=== PATIENT | female | born 1990 | race Caucasian/White ===

== ENCOUNTER 2024-09-22 21:47 | Emergency (ER) | payer BC, SELFPAY ==
[2024-09-22 21:58] VITALS: BP 176/108; PULSE 108; TEMP 37.2; O2SAT 99; BMI 38.8
[2024-09-22 22:08] VITALS: PULSE 101
--- NOTE | 2024-09-22 22:08 | ECG_ITS ---
[facility] Test Date: 2024-09-22 Pat Name: AMADO BOWDEN Department: Room: - Gender: Female [employer]: : 1990 Requested By: Shine Gomez Order Number: [id number] Reading MD: ANABELLA GOODRICH M.D. Measurements Intervals [place] Rate: 101 P: 34 ID: 150 QRS: 35 QRSD: 88 T: 0 QT: 344 QTc: 402 Interpretive Statements 1120 Sinus tachycardia [address] depression [address] & [place] abnormality 9140 abnormal rhythm ECG No previous ECG available for comparison Electronically Signed On 09-23-2024 8:55:56 EDT by ANABELLA GOODRICH M.D.
--- NOTE | 2024-09-22 22:37 | ED.GENADUL1 ---
HPI HPI - General Adult General Chief complaint: Recheck/Abnormal Lab/Rx Stated complaint: HIGH BP Time Seen by Provider: 09/22/24 21:58 Source: patient Mode of arrival: walk-in Limitations: no limitations History of Present Illness HPI narrative: cc - high blood pressure Pt saw a primary care provider for the first time in many years and was diagnosed with high blood pressure. She was started on Losartan and took the first dose yesterday. She said that she got a prescription for additional doses and took one today as well. She received a blood pressure cuff in the mail today and when she took her BP tonight, it was markedly elevated. She became very upset and came to the ED for evaluation. On questioning, she told me that she has been experiencing intermittent symptoms of chest pains, palpitations, shortness of breath, occasional dizziness. She denied any headache or visual changes. No Gi or symptoms,. she had some cough and cold symptoms last week but denies any now. no fever or chills. She said that she also has untreated low thyroid . She is anxious and emotional on arrival. Related Data Home Medications ?Medication ?Instructions ?Recorded ?Confirmed losartan 50 mg tablet 50 mg PO DAILY 09/22/24 09/22/24 Allergies Allergy/AdvReac Type Severity Reaction Status Date / Time No Known Drug Allergies Allergy Verified 09/22/24 22:03 Opioid HPI Opioid Management Most Recent Opioid Data: No Data to Display [facility] Medical History (Updated 09/22/24 @ 22:45 by Shine Gomez) Hypothyroid ?E03.9 - Hypothyroidism, unspecified (ICD-10) Social History Little interest or pleasure in doing things: not at all Feeling down, depressed, or hopeless: not at all Exam Narrative Exam Narrative: Nurses notes and vital signs reviewed and patient is not hypoxic. afebrile General: emotional but in no apparent distress. Skin: Warm, dry, no pallor noted. No rash. Head: Normocephalic, atraumatic. Neck: Supple, non-tender. Eye: Pupils are equal, round and EOMI. No scleral icterus. Ears, Nose, Mouth, and Throat: Oral mucosa is moist Cardiovascular: Regular Rate and Rhythm without murmur, gallop or rub. Respiratory: No accessory muscle use or respiratory distress. Lungs are clear to auscultation, no wheezing, rales or rhonchi Musculoskeletal: normal ROM, no calf or popliteal tenderness, no lower extremity edema/swelling GI: Abdomen is soft, non-distended. Normal bowel sounds. No masses appreciated. No tenderness to palpation. No rebound, guarding, or rigidity noted. Neurological: A&O x4. No cranial nerve dysfunction observed. No truncal ataxia. Moves all extremities. Sensation intact. Psychiatric: Cooperative and interactive. emotional and anxious. Constitutional Vital Signs, click to edit/add: Last Vital Signs Temp 98.9 F 09/22/24 21:58 Pulse 90 09/23/24 00:35 Resp 16 09/23/24 00:35 BP 160/100 H 09/23/24 00:35 Pulse Ox 97 09/23/24 00:35 O2 Del Method Room Air 09/23/24 00:35 Course Vital Signs Vital signs: Vital Signs Temperature 98.9 F 09/22/24 21:58 Pulse Rate 108 H 09/22/24 21:58 Respiratory Rate 18 09/22/24 21:58 Blood Pressure 176/108 H 09/22/24 21:58 Pulse Oximetry 99 09/22/24 21:58 Temperature 98.9 F 09/22/24 21:58 Pulse Rate 90 09/23/24 00:35 Respiratory Rate 16 09/23/24 00:35 Blood Pressure 160/100 H 09/23/24 00:35 Pulse Oximetry 97 09/23/24 00:35 Oxygen Delivery Method Room Air 09/23/24 00:35 Medical Decision Making MDM Narrative Medical decision making narrative: The patient had blood drawn yesterday and she showed me her blood test results, using her phone. Unremarkable CBC and metabolic profile. Normal electrolytes and kidney function. Minimal increase in AST and ALT. D-dimer was found to be slightly elevated at 0.71. Her primary care physician had recommended the patient obtain a CT of the chest -therefore I sent her for this test while in the emergency department. EKG showed a sinus tachycardia without any ST elevation or deep ischemic changes although she does have T wave inversion in lead III. Free T3 and free T4 were normal. CT angio chest = without worrisome findings, according to the radiologist report, which is detailed below. The patient's blood pressure improved after receiving IV labetalol and IV Vasotec. She was reassured and informed of her negative workup and discharged home with instruction to follow-up with her primary care physician, continue to take the losartan as prescribed. Recent to return to the ED were discussed. She was given a copy of her CTA report to share with her PCP. Lab Data Lab results reviewed: Yes I reviewed the patient's lab results Labs: Lab Results 09/22/24 Range/Units 22:21 Free T4 1.19 (0.76-1.46) ng/dL Free T3 3.35 (2.18-3.98) pg/mL Imaging Data CT scan - chest: Radiologist's impression: Impression: 1. No thoracic aortic aneurysm or dissection. 2. No pulmonary embolism. 3. No features of edema or pneumonia. 4. No pleural effusion or pneumothorax. 5. Normal thyroid gland. ECG Data Attestation: I personally reviewed and interpreted this ECG as follows: Interpretation: EKG interpretation: Emergency Department physician interpretation. Sinus tachycardia at 101bpm. Normal axis, normal intervals and no ST segment elevation or depression. T wave inversion in lead III. Nonspecific ST and T wave changes noted in lead aVF. Discharge Plan Discharge Chief Complaint: Recheck/Abnormal Lab/Rx Clinical Impression: Hypertensive urgency Patient Disposition: Home, Self-Care Time of Disposition Decision: 00:49 Prescriptions / Home Meds: No Action losartan 50 mg tablet 50 mg PO DAILY Print Language: Jordanian Instructions: Hypertension (ED) Referrals: DEBBIE HANCOCK [Primary Care Provider] - 1 week
[2024-09-22] MEDS: LABETALOL HCL 20 MG/4 ML SYRINGE IVP (22:54)
[2024-09-22 23:07] VITALS: BP 174/108; PULSE 97; O2SAT 97
[2024-09-22 23:24] VITALS: BP 174/108
[2024-09-22] MEDS: ENALAPRILAT DIHYDRATE 1.25 MG/ML VIAL IV (23:24)
[2024-09-22 23:29] LABS: Free T4 1.19 ng/dL (0.76-1.46)
[2024-09-22 23:36] LABS: Free T3 3.35 pg/mL (2.18-3.98)
[2024-09-22 23:43] VITALS: BP 170/94; PULSE 90; O2SAT 97
[2024-09-23 00:10] VITALS: BP 158/90; PULSE 91; O2SAT 97
[2024-09-23 00:35] VITALS: BP 160/100; PULSE 90; O2SAT 97
[2024-09-23 01:00] VITALS: BP 170/94; PULSE 91; O2SAT 97
== END 2024-09-23 01:03 | disposition home or self-care (01) ==
PROVIDERS: Emergency Provider Emergency Medicine; PCP Family Medicine
DX: I16.0 Hypertensive urgency (principal); R07.9 Chest pain, unspecified; R06.02 Shortness of breath
CPT/HCPCS: 36415; 71275; 84439; 84481; 93005; 96374; 96375; 99285; J1920; Q9967